=== PATIENT | female | born 1955 | race Caucasian/White ===

== ENCOUNTER 2019-02-20 14:25 | Emergency (ER) | payer OTHER ==
[~2019-02-20] VITALS: Ht 172.7 cm; Wt 81.6 kg
[2019-02-20 14:40] VITALS: BP 148/86
--- NOTE | 2019-02-20 14:48 | NUR ---
PT AMBULATED TO BED 4
--- NOTE | 2019-02-20 15:06 | NUR ---
THIS 63 YEAR OLD FEMALE PT BIB SELF TO THE ED WITH THE CHIEF C/O HEADACHE FOR 5 DAYS. TAKING IBUPROFEN. MED TAKEN LAST TIME WAS THIS MORNING. PT REPORTS DIZZINESS, BLURRY VISION AT THIS TIME. REPORTS SOB AND DIFFICULTY BREATHING. HAS HX OF ASTHMA. PT STATES " I FEEL DIFFERENT THAN ASTHMA." PT IS NOT TAKING ALBUTEROL FOR ASTMHA CURRENTLY. DENIES FEVER. REPORTS NAUSEATED. DENIES VOMITING. HAD DIARRHEA X2 TODAY. NO BLOOD IN DIARRHEA. STATES HEADACHE OF 10/10 AT THIS TIME. PLACED PT ON MONITOR. ER MD AWARE.
[2019-02-20] MEDS ORDERED: KETOROLAC 60 MG/2 ML VIAL IM ONE (15:55)
[2019-02-20] MEDS ORDERED: cefTRIAXone 500 MG in LIDOCAINE MPF 1% - 5 mL VIAL 1 ML IM ONE (15:55)
--- NOTE | 2019-02-20 17:13 | NUR ---
PT VERBALIZED HEADACHE DECREASED. DENIES ANY SOB, DIFFICULTY BREATHING. SPO2 94%. DENIES ANY DIZZINESS.
--- NOTE | 2019-02-20 17:22 | NUR ---
Patient discharged with v/s stable. Written and verbal after care instructions given and explained. Patient alert, oriented and verbalized understanding of instructions. Ambulatory with steady gait. All questions addressed prior to discharge. ID band removed. Patient advised to follow up with PMD. Rx of AUGMENTIN AND NAPROSYN given. Patient educated on indication of medication including possible reaction and side effects. Opportunity to ask questions provided and answered. Discharge instruction given by Dr. Azul.
[2019-02-20 17:23] VITALS: BP 156/84
== END 2019-02-20 17:22 | disposition home or self-care (01) ==
LOC: MED 14:25
DX: J32.0 Chronic maxillary sinusitis (principal); J32.2 Chronic ethmoidal sinusitis; J45.909 Unspecified asthma, uncomplicated; Z88.6 Allergy status to analgesic agent; Z87.09 Personal history of other diseases of the respiratory system
CPT/HCPCS: 96372; 99283; J0696; J1885; J2001

== ENCOUNTER 2019-03-24 22:26 | Emergency (ER) | payer OTHER ==
[~2019-03-24] VITALS: Ht 177.8 cm; Wt 81.6 kg
[2019-03-24 22:39] VITALS: BP 120/76
--- NOTE | 2019-03-24 22:40 | NUR ---
TO LOBBY A/W BED AMBULATORY
--- NOTE | 2019-03-25 00:19 | NUR ---
PT AMBULATED TO BED 04.
--- NOTE | 2019-03-25 00:33 | NUR ---
Dr. Wu evaluating patient at bedside.
[2019-03-25] MEDS ORDERED: KETOROLAC 30 MG/ML VIAL IM ONE (00:45)
--- NOTE | 2019-03-25 00:50 | NUR ---
63 YO F BIB SELF PRESENTS TO ED C/O 08/10 SHARP MANZO RADIATING TO NECK X 1 MONTH. PT STATES SHE WAS RECENTLY TREATED FOR SAME MANZO AND EAR INFECTION AND TOOK AMOXICILLIN BUT IT DID NOT HELP. SHE ALSO STATES SHE SAW HER PCP TODAY AND RECEIVED RX LISINOPRIL FOR HTN. -- PT IS ALET, CALM, COOPERATIVE BUT IS A POOR HISTORIAN. -- SKIN PINK, DRY, WARM. BREATHING EVEN, UNLABORED. PMH-- DENIES PT IS SITTING IN CHAIR NEXT TO SON WHO IS ALSO BEING SEEN A PATIENT. VSS. NO APPARENT DISTRESS AT THIS TIME.
--- NOTE | 2019-03-25 00:56 | NUR ---
TORADOL D/C'D BY DR. CAMPO. MED NOT GIVEN.
[2019-03-25 02:05] VITALS: BP 127/85
--- NOTE | 2019-03-25 02:05 | NUR ---
Patient discharged with v/s stable. Written and verbal after care instructions given and explained. Patient alert, oriented and verbalized understanding of instructions. Ambulatory with steady gait. All questions addressed prior to discharge. ID band removed. Patient advised to follow up with PMD. Rx of Robaxin given. Patient educated on indication of medication including possible reaction and side effects. Opportunity to ask questions provided and answered.
== END 2019-03-25 02:05 | disposition home or self-care (01) ==
LOC: MED 22:26
DX: S16.1XXA Strain of muscle, fascia and tendon at neck level, initial encounter (principal); J45.909 Unspecified asthma, uncomplicated; Z88.6 Allergy status to analgesic agent; Z88.5 Allergy status to narcotic agent; X58.XXXA Exposure to other specified factors, initial encounter; Y93.89 Activity, other specified; Y92.89 Other specified places as the place of occurrence of the external cause; Y99.8 Other external cause status
CPT/HCPCS: 99283

== ENCOUNTER 2019-04-09 06:13 | Emergency (ER) | payer OTHER ==
[~2019-04-09] VITALS: Ht 177.8 cm; Wt 81.6 kg
[2019-04-09 06:16] VITALS: BP 205/128
--- NOTE | 2019-04-09 06:16 | NUR ---
Pt taken to bed 11.
--- NOTE | 2019-04-09 06:30 | NUR ---
63 y/o F presented to ED with c/o elevated blood pressure x1 hour. AAOx4. first BP 211/135 and second BP 205/128 accompanied with lightheadedness and dizziness. denies chest pain. denies vision changes. experiencing light sensitivity. per pt, "my heart feels like it is racing fast. i feel anxious." L ear and neck pain, 9/10 throbbing. tender to touch. tympanic membrane intact, no redness noted. bedrail x2 up. bed in lowest postion. ERMD aware. will continue to monitor. -repeat BP 167/104 and HR 77 at 0628.
[2019-04-09] MEDS ORDERED: cloNIDine 0.1 MG TAB PO ONE (06:35)
[2019-04-09 07:08] LABS: BASOPHILS # (AUTO) 0.1 K/uL (0.00-0.22); BASOPHILS % (AUTO) 0.7 % (0.0-2.0); EOSINOPHILS # (AUTO) 0.2 K/uL (0-0.4); EOSINOPHILS % (AUTO) 2.2 % (0.0-4.0); HEMATOCRIT 42.6 % (36-48); HEMOGLOBIN 13.9 g/dL (12.0-16.0); LYMPHOCYTES # (AUTO) 2.9 K/uL (2.5-16.5); LYMPHOCYTES % (AUTO) 29.5 % (20.5-51.1); MEAN CORPUSCULAR HEMOGLOBIN 26 pg (27-31); MEAN CORPUSCULAR HGB CONC 33 g/dL (33-37); MEAN CORPUSCULAR VOLUME 79.2 fL (80-94); MONOCYTES # (AUTO) 0.5 K/uL (0.8-1.0); NEUTROPHILS # (AUTO) 6.2 K/uL (1.8-7.7); NEUTROPHILS % (AUTO) 62.6 % (42.2-75.2); PLATELET COUNT (AUTO) 223 K/uL (140-450); RED BLOOD CELL COUNT(AUTO) 5.38 MIL/uL (4.20-5.40); RED CELL DISTRIBUTION WIDTH 14.7 % (11.6-13.7); WHITE BLOOD COUNT (AUTO) 9.9 K/uL (4.8-10.8)
[2019-04-09 07:10] LABS: ANION GAP 14.6 (8-16); CARBON DIOXIDE 26.3 mmol/L (21-32); CREATININE 0.9 mg/dL (0.6-1.3); POTASSIUM 3.9 mmol/L (3.5-5.1)
[2019-04-09 07:16] LABS: ALBUMIN 3.6 g/dL (3.4-5.0); TOTAL BILIRUBIN 0.3 mg/dL (0.0-1.0)
--- NOTE | 2019-04-09 07:27 | NUR ---
Bedside report given to KRISHNA Ruff. Transfer of care at this time.
--- NOTE | 2019-04-09 07:50 | NUR ---
ERMD AT BEDSIDE EVALUATING PT
[2019-04-09 08:05] VITALS: BP 162/99
== END 2019-04-09 08:19 | disposition home or self-care (01) ==
LOC: MED 06:13
DX: I10 Essential (primary) hypertension (principal); J45.909 Unspecified asthma, uncomplicated; F41.9 Anxiety disorder, unspecified; Z88.6 Allergy status to analgesic agent; Z88.5 Allergy status to narcotic agent
CPT/HCPCS: 36415; 80053; 85025; 99284

== ENCOUNTER 2019-08-12 04:19 | Emergency (ER) | payer OTHER ==
[~2019-08-12] VITALS: Ht 172.7 cm; Wt 81.2 kg
[2019-08-12 04:29] VITALS: BP 177/112
--- NOTE | 2019-08-12 04:35 | NUR ---
PT AMBULATED TO BED 2.
--- NOTE | 2019-08-12 04:48 | NUR ---
ERMD EVALUATING PATIENT AT THIS TIME.
--- NOTE | 2019-08-12 04:52 | NUR ---
63 Y/O FEMALE C/O HIGH BLOOD PRESSURE. PATIENT STATED THAT SHE WAS TAKING LOSARTAN 25MG QD AND THAT "MEDS AREN'T WORKING" BP IS 185/94, HR 79. PT STATES FEELING "HAZY." NO C/O PAIN. NO N/V/D, DIZZINESS, HEADACHE, CHEST PAIN OR BLURRED VISION. PER PATIENT, SHE WAS ON LISINOPRIL 15MG, BUT HER CURRENT PHYSICIAN PRESCRIBED AMLODIPINE BUT HAS NOT TAKEN IT YET. SHE IS CURRENTLY ON ANTIBIOTICS FOR A VAGINAL INFECTION. ERMD MADE AWARE OF STATUS. SIDERAILS X1 AND PLACED ON MONITOR HX: HTN, ARTHRITIS, SHINGLES (NOT CURRENTLY ACTIVE) RX: AMLODIPINE AND LOSARTAN ALLERGIES:ACETAMINOPHEN AND OXYCODONE
[2019-08-12] MEDS ORDERED: cloNIDine 0.1 MG TAB PO ONE (05:10)
--- NOTE | 2019-08-12 05:46 | NUR ---
BP: 163/95 ; HR: 86. NOTIFIED MD OF BLOOD PRESSURE READING. WILL CONTINUE MONITOR.
--- NOTE | 2019-08-12 06:25 | NUR ---
BLOOD PRESSURE: 130/80; HR:68. NOTIFIED MD OF BLOOD PRESSURE READING. MD OKAY TO DISCHARGE PATIENT.
[2019-08-12 06:26] VITALS: BP 130/80
--- NOTE | 2019-08-12 06:26 | NUR ---
Patient discharged with v/s stable. Written and verbal after care instructions given and explained. Patient verbalized understanding. Ambulatory with steady gait. All questions addressed prior to discharge. Advised to follow up with PMD.
== END 2019-08-12 06:26 | disposition home or self-care (01) ==
LOC: MED 04:19
DX: I10 Essential (primary) hypertension (principal); R42 Dizziness and giddiness; J45.909 Unspecified asthma, uncomplicated; Z88.6 Allergy status to analgesic agent; Z88.5 Allergy status to narcotic agent
CPT/HCPCS: 99283

== ENCOUNTER 2021-01-21 17:03 | Emergency (ER) | payer OTHER ==
[~2021-01-21] VITALS: Ht 177.8 cm; Wt 81.6 kg
[2021-01-21 17:06] VITALS: BP 152/95
--- NOTE | 2021-01-21 17:17 | NUR ---
Pt ambulated to ER bed 3.
--- NOTE | 2021-01-21 17:21 | NUR ---
[facility]: RIGHT EYE 20/25, LEFT EYE 20/20, BOTH EYES 20/20
--- NOTE | 2021-01-21 17:21 | NUR ---
65 Y/O FEMALE C/O CEPHALGIA [id number] EYE DISCOMFORT [id number] AGO. PT STATES SHE IS SEEING FLASHING LIGHTS AND 3/10 PAIN. PT TOOK PRESCRIBED EYE DROPS AND HAS HAD NO RELIEF. BP 142/95 AT THIS TIME. DENIES FEVER/CHILLS, DENIES N/V. PMH: ASTHMA,HTN, ARTHRITIS ALLERGIES TO ACETAMINOPHEN AND OXYCODONE
--- NOTE | 2021-01-21 17:53 | NUR ---
US tech at pt bedside.
[2021-01-21 19:23] VITALS: BP 146/89
== END 2021-01-21 19:23 | disposition home or self-care (01) ==
LOC: MED 17:03
DX: H57.89 Other specified disorders of eye and adnexa (principal); H57.12 Ocular pain, left eye; R51.9 Headache, unspecified; J45.909 Unspecified asthma, uncomplicated; I10 Essential (primary) hypertension; Z79.899 Other long term (current) drug therapy; Z88.6 Allergy status to analgesic agent; Z88.5 Allergy status to narcotic agent
CPT/HCPCS: 76536; 99284

== ENCOUNTER 2022-02-11 18:32 | Emergency (ER) | payer OTHER ==
[~2022-02-11] VITALS: Ht 177.8 cm; Wt 83.5 kg
[2022-02-11 18:37] VITALS: BP 161/92
[2022-02-11] MEDS ORDERED: NAPR-54 PO (20:32)
[2022-02-11 20:51] VITALS: BP 161/92
--- NOTE | 2022-02-11 20:52 | NUR ---
Patient discharged with v/s stable. Written and verbal after care instructions given and explained about shoulder pain, knee effusion, and contusion. Patient alert, oriented and verbalized understanding of instructions. Ambulatory with steady gait. All questions addressed prior to discharge. ID band removed. Patient advised to follow up with PMD. Rx of naproxen given. Patient educated on indication of medication including possible reaction and side effects. Opportunity to ask questions provided and answered.
== END 2022-02-11 20:52 | disposition home or self-care (01) ==
LOC: MED 18:32
DX: M25.511 Pain in right shoulder (principal); M25.562 Pain in left knee; M25.521 Pain in right elbow; I10 Essential (primary) hypertension; J45.909 Unspecified asthma, uncomplicated; Z88.0 Allergy status to penicillin; Z88.6 Allergy status to analgesic agent; Z88.5 Allergy status to narcotic agent; W01.0XXA Fall on same level from slipping, tripping and stumbling without subsequent striking against object, initial encounter; Y93.89 Activity, other specified; Y92.098 Other place in other non-institutional residence as the place of occurrence of the external cause; Y99.8 Other external cause status
CPT/HCPCS: 73030; 73080; 73562; 99284